=== PATIENT | male | born 1965 | race Caucasian/White ===

== ENCOUNTER 2021-03-10 23:01 | Emergency (ER) | payer MEDICAID ==
[~2021-03-10] VITALS: Ht 177.8 cm; Wt 70.3 kg
[2021-03-10 23:01] VITALS: BP 175/99
--- NOTE | 2021-03-10 23:30 | NUR ---
55 YO/M BIBA FROM HOME S/P PRESCRIPTION MEDICATION OVERDOSE OF LISINOPRIL, METOPROLOL, AND ATENELOL APPROX 15-30PILLS TOTAL. PT REPORTS HE TOOK THOSE MEDICATIONS ATTEMPTED SUICIDE. PT REPORTS HE IS DEPRESSED. PT REPORTS THIS WAS A ONE TIME FEELING, HAS NOT ATTEMPTED SUICIDE IN THE PAST, DOES NOT HAVE SUICIDAL THOUGHTS ANYMORE. PT DENIES VISUAL OR AUDITORY HALLUCINATIONS. PT REPORT FEELING LIGHTHEADED, DENIES BLURRY VISION, N/V/D, HEADACHE, CHEST PAIN, SOB, PAIN OR OTHER SYMPTOMS. PT PRESENTS AOX4, GCS 15, S1 S2 PRESENT, SKIN WARM AND DRY, +2 RADIAL PULSES, CAP REFIL <2SEC, LUNG SOUNDS CLEAR THOUGHOUT W BREATHING EVEN AND UNLABORED, BOWEL SOUNDS PRESENT, ABDOMEN SOFT NON-TENDER. PT HAS 18G TO LAC INSERTED BY [facility] DURING ROUTE. VSS ON MONITOR. PATIENT LAYING SUPINE IN BED, LOCKED IN LOWEST POSITION W X2 SIDERAILS UP. PATIENT PLACED IN GOWN. SUICIDE PRECAUTIONS IN PLACE. PMH:HTN NKA
[2021-03-10 23:53] LABS: BASOPHILS % (AUTO) 0.4 % (0.0-2.0); EOSINOPHILS # (AUTO) 0.1 K/uL (0-0.4); EOSINOPHILS % (AUTO) 0.9 % (0.0-4.0); HEMATOCRIT 40.4 % (36-52); HEMOGLOBIN 13.8 g/dL (12.0-18.0); LYMPHOCYTES # (AUTO) 1.8 K/uL (2.0-11.5); LYMPHOCYTES % (AUTO) 25.1 % (20.5-51.1); MEAN CORPUSCULAR HEMOGLOBIN 30 pg (27-31); MEAN CORPUSCULAR HGB CONC 34 g/dL (33-37); MEAN CORPUSCULAR VOLUME 87.9 fL (80-94); MONOCYTES # (AUTO) 0.6 K/uL (0.8-1.0); MONOCYTES % (AUTO) 9.2 % (1.7-9.3); NEUTROPHILS # (AUTO) 4.5 K/uL (1.8-7.7); NEUTROPHILS % (AUTO) 64.4 % (42.2-75.2); PLATELET COUNT (AUTO) 290 K/uL (140-450); RED BLOOD CELL COUNT(AUTO) 4.59 MIL/uL (4.20-6.10); RED CELL DISTRIBUTION WIDTH 13.2 % (11.6-13.7)
--- NOTE | 2021-03-11 00:18 | NUR ---
SPOKE TO JIGAR FROM POISON CONTROL. PER JIGAR TO DO CARDIAC MONITORING, EKG, MONITOR FOR BRADYCARDIA, AND HYPOTENSION FOR 8-12 HOURS. IF HYPOTENSION OCCURS AND DOES NOT RESPOND TO IV FLUIDS TO GIVE GLUCAGON 5-10MG SLOW IV PUSH WITH AND ANTIEMETIC, THEN START GLUCAGON DRIP AT DOSAGE PT BLOOD PRESSURE RESPONDED TO. IF NON-RESPONSIVE TO TO GLUCAGON DRIP AND PRESSORS ARE REQUIRED TO CALL BACK POISON CONTROL. PER JIGAR DRAW LABS FOR ACETAMINOPHEN AND SALYCILATES. ALSO RECOMMENDING CHARCOAL ADMINISTRATION OF 1GM/KG. ERMD MADE AWARE.
[2021-03-11 00:19] LABS: ANION GAP 15.1 (8-16); CARBON DIOXIDE 23.5 mmol/L (21-32); CHLORIDE 103 mmol/L (98-107); CREATININE 0.9 mg/dL (0.6-1.3); GFR ARICAN-AMERICAN 112 mL/min (>90); GLUCOSE 117 mg/dL (74-106); POTASSIUM 3.6 mmol/L (3.5-5.1); SODIUM SERUM 138 mmol/L (136-145); UREA NITROGEN, BLOOD 7 mg/dL (7-18)
[2021-03-11 00:20] LABS: ACETAMINOPHEN < 0.5 ug/ml (10-30); ALBUMIN 4.1 g/dL (3.4-5.0); ASPARTATE AMINOTRANSFERASE 34 U/L (15-37); SALICYLATE < 2.8 mg/dL (2.8-20.0); TOTAL BILIRUBIN 0.7 mg/dL (0.0-1.0)
--- NOTE | 2021-03-11 00:55 | NUR ---
PT MOVED TO BED 05.
[2021-03-11 00:58] LABS: APPEARANCE,URINE CLEAR (CLEAR); BILIRUBIN,URINE NEGATIVE (NEGATIVE); BLOOD, URINE NEGATIVE (NEGATIVE); COLOR,URINE YELLOW (YELLOW); LEUKOCYTE ESTERASE ,URINE NEGATIVE (NEGATIVE); NITRITE, URINE NEGATIVE (NEGATIVE); UGLUCOSE NEGATIVE (NEGATIVE)
--- NOTE | 2021-03-11 01:05 | NUR ---
PT LAYING IN BED SUPINE W EYES CLOSED. BED LOCKED IN LOWEST POSITION W X2 SIDERAILS UP. BREATHING EVEN AND UNLABORED. VSS ON MONITOR. NAD NOTED, WILL CONTINUE TO MONITOR.
[2021-03-11 01:13] LABS: BARBITURATE, URINE NEGATIVE ng/ml (NEG <=200); BENZODIAZEPINE, URINE NEGATIVE ng/mL (NEG <=200); CANNABINOID, URINE NEGATIVE ng/mL (NEG <=50); COCAINE, URINE NEGATIVE ng/mL (NEG <=300); OPIATE, URINE NEGATIVE ng/mL (NEG <=2000); PHENCYCLIDINE SCREEN,URINE NEGATIVE ng/mL (NEG <=25)
--- NOTE | 2021-03-11 02:40 | NUR ---
PT BP AT 138/71, SALTYD MADE AWARE.
--- NOTE | 2021-03-11 03:07 | NUR ---
PT BP 128/71, ERMD MADE AWARE. PER ERMD START PT ON NS BOLUS.
[2021-03-11] MEDS ORDERED: NACL 0.9% 1,000 ML IV ONE ×2 (03:15)
--- NOTE | 2021-03-11 03:30 | NUR ---
PATIENT LAYING IN BED AWAKE IN L LATERAL POSITION W X2 SIDERAILS UP FOR PATIENT SAFETY. PT REPORTS ONGOING LIGHT HEADEDNESS BUT DENIES ANY OTHER SYMPTOMS. DENIES BLURRY VISION, N/V, OR ANY PAIN. PATIENT VSS ON MONITOR. NAD NOTED, WILL CONTINUE TO MONITOR.
--- NOTE | 2021-03-11 03:55 | NUR ---
PT PROVIDED W URINAL PER PT REQUEST. PT VOIDED 600CC OF CLEAR YELLOW URINE.
--- NOTE | 2021-03-11 04:00 | NUR ---
SPOKE Pierce KIMBALL FROM POISON CONTROL FOR PT STATUS UPDATE. PER POISON CONTROL NO CHANGES IN PREVIOUS INSTRUCTIONS. MONITOR FOR HYPOTENSION OF <90SBP, AND DUE A REPEAT EKG AT THIS TIME.
--- NOTE | 2021-03-11 04:17 | NUR ---
PT AMBULATED TO BATHROOM W STEADY GAIT, ACCOMPANIED BY DAVID CORTEZ.
--- NOTE | 2021-03-11 05:35 | NUR ---
PATIENT LAYING IN BED AWAKE W BLANKET ON, HOB ELEVATED, BED LOCKED IN LOWEST POSITION W X1 SIDERAIL UP. PT DENIES ANY MORE LIGHTHEADEDNESS FEELING. PT REPORTS SOME NAUSEA AND HUNGER. PROVIDED PT W SANDWHICH, JELLO, JUICES, AND WATER. PATIENT VSS ON MONITOR.
--- NOTE | 2021-03-11 05:55 | NUR ---
VON SAMPLE COLLECTED FROM PT NARES AND SENT TO LAB.
--- NOTE | 2021-03-11 05:57 | NUR ---
pt ambulated to rr and back to bed with steady gait. rr door remained slightly open to see pt.
--- NOTE | 2021-03-11 06:00 | NUR ---
PT BP AT 197/92, ERMD AWARE. NO NEW ORDERS AT THIS TIME.
--- NOTE | 2021-03-11 06:15 | NUR ---
pt is dry heaving states he feels like vomiting. ermd made aware.
[2021-03-11] MEDS ORDERED: ATOR10TA51 PO (06:20)
[2021-03-11] MEDS ORDERED: LISI5TAB18 PO (06:20)
[2021-03-11] MEDS ORDERED: MECO10005 PO (06:20)
[2021-03-11] MEDS ORDERED: ATEN25TA7 PO (06:20)
--- NOTE | 2021-03-11 06:20 | NUR ---
PT MED REC COMPLETED. PT ALSO TAKES METOPROLOL UNSURE WHICH KIND OR DOSE, +B21 UNSURE WHICH KIND OR DOSE.
[2021-03-11] MEDS ORDERED: ONDANSETRON 4 MG/2 ML VIAL IVP ONE (06:35)
--- NOTE | 2021-03-11 07:09 | NUR ---
Pt report given to MYCHAL MCFADDEN. Transfer of care at this time.
--- NOTE | 2021-03-11 07:10 | NUR ---
RECEIVED REPORT FROM MYCHAL ISBELL. TRANSFER OF CARE AT THIS TIME.
--- NOTE | 2021-03-11 07:34 | NUR ---
PT AWAKE, ALERT, VERBAL, SI PRECAUTIONS IN PLACE. WILL CONTINUE TO MONITOR.
--- NOTE | 2021-03-11 08:00 | NUR ---
PT SITTING UP HOB ELEVATED, PROVIDED BREAKFAST TRAY, PT CALM AND COOPERATIVE. VSS. WILL CONTINUE TO MONITOR.
--- NOTE | 2021-03-11 08:51 | NUR ---
SPOKE WITH PT DAUGHTER FOR PT UPDATES.
--- NOTE | 2021-03-11 10:00 | NUR ---
PT SITTING UP HOB ELEVATED, PROVIDED BREAKFAST TRAY, PT CALM AND COOPERATIVE. VSS. WILL CONTINUE TO MONITOR.
--- NOTE | 2021-03-11 10:48 | NUR ---
PT BEING TELEPSYCHED AT THIS TIME.
--- NOTE | 2021-03-11 10:50 | NUR ---
PER PSYCHIATRIST PT TO BE KEPT ON 5150 HOLD.
--- NOTE | 2021-03-11 11:45 | NUR ---
SPOKE WITH PT DAUGHTER LUIS ANGEL FOR PT UPDATES.
--- NOTE | 2021-03-11 12:00 | NUR ---
PT SITTING UP HOB ELEVATED, PROVIDED LUNCH TRAY, PT CALM AND COOPERATIVE. VSS. WILL CONTINUE TO MONITOR.
--- NOTE | 2021-03-11 12:50 | NUR ---
PT AMBULATED TO RESTROOM WITH A STEADY GAIT.
--- NOTE | 2021-03-11 12:56 | NUR ---
PT AMBULATED TO ER BED 5. BEDDING SHEETS CHANGED, CLEAN WARM BLANKET PROVIDED.
--- NOTE | 2021-03-11 13:59 | NUR ---
SPOKE WITH PT DAUGHTER, LUIS ANGEL FOR UPDATES.
--- NOTE | 2021-03-11 14:54 | NUR ---
PT RESTING SUPINE, AWAKE, ALERT, VSS, WILL CONTINUE TO MONITOR.
--- NOTE | 2021-03-11 16:00 | NUR ---
PT RESTING SUPINE, AWAKE, ALERT, VSS, WILL CONTINUE TO MONITOR.
--- NOTE | 2021-03-11 17:08 | NUR ---
PT AMBULATED TO RESTROOM WITH A STEADY GAIT.
--- NOTE | 2021-03-11 17:11 | NUR ---
PT AMBULATED TO ER BED 5.
--- NOTE | 2021-03-11 17:32 | NUR ---
SPOKE WITH LUIS ANGEL CAMPBELL DAUGHTER FOR UPDATES.
--- NOTE | 2021-03-11 19:25 | NUR ---
GAVE REPORT TO MYCHAL NEAL. TRANSFER OF CARE AT THIS TIME.
--- NOTE | 2021-03-11 19:27 | NUR ---
RECEIVED REPORT AND TRANSFER OF PT CARE FROM DAY SHIFT RNLESA
--- NOTE | 2021-03-11 21:13 | NUR ---
PT RESTING IN BED, ON THE PHONE SPEAKING TO HIS DAUGHTER, NO SIGNS OF ACUTE DISTRESS
--- NOTE | 2021-03-12 01:53 | NUR ---
PT RESTING IN BED, EYES CLOSED, VSS, R/R EVEN AND UNLABORED, NO SIGNS OF ACUTE DISTRESS
[2021-03-12] MEDS ORDERED: MAGN1.7529 PO (06:24)
--- NOTE | 2021-03-12 07:20 | NUR ---
ENDORSED TO DAY SHIFT RN FOR CONTINUITY OF CARE
--- NOTE | 2021-03-12 07:22 | NUR ---
REPORT RECEIVED FROM MYCHAL NEAL FOR TRANSFER OF CARE
--- NOTE | 2021-03-12 08:52 | NUR ---
pt currently eating breakfast bedside. pt is calm and alert at this time. will continue to monitor
[2021-03-12 10:27] VITALS: BP 187/99
--- NOTE | 2021-03-12 10:46 | NUR ---
VITAL SIGNS STABLE AND CHARTED. SUCIDE SEVERITY SCALE TAKEN AND CHARTED WELL
--- NOTE | 2021-03-12 11:09 | NUR ---
SPOKE WITH DAUGHTER LUIS ANGEL [phone]. PT CURRENTLY SPEAKING WITH DAUGHTER ON MOBILE PHONE
--- NOTE | 2021-03-12 11:51 | NUR ---
PT AMBULATED TO RESTROOM, GAIT STEADY
--- NOTE | 2021-03-12 12:01 | NUR ---
Packet received for placement. Fax to [facility] for review
--- NOTE | 2021-03-12 12:15 | NUR ---
PT GIVEN LUNCH TRAY BEDSIDE
--- NOTE | 2021-03-12 12:47 | NUR ---
Packet fax to the following facilities [facility]/Nelida Gordon
--- NOTE | 2021-03-12 13:01 | NUR ---
SPOKE WITH JAVI FROM [facility] FOR PENDING TRANSFER. PER JAVI A BEDS ASSIGNMENT IS PENDING.
[2021-03-12] MEDS ORDERED: ACETAMINOPHEN 325 MG TAB ONE (15:33)
[2021-03-12] MEDS ORDERED: amLODIPine 5 MG TAB ONE (16:03)
== END 2021-03-12 16:13 ==
LOC: MED 23:01
DX: T44.7X2A Poisoning by beta-adrenoreceptor antagonists, intentional self-harm, initial encounter (principal); Z20.822 Contact with and (suspected) exposure to COVID-19; T46.4X2A Poisoning by angiotensin-converting-enzyme inhibitors, intentional self-harm, initial encounter; I10 Essential (primary) hypertension; F32.9 Major depressive disorder, single episode, unspecified; F41.9 Anxiety disorder, unspecified; F12.90 Cannabis use, unspecified, uncomplicated; Y92.89 Other specified places as the place of occurrence of the external cause
CPT/HCPCS: 36415; 80053; 80305; 81003; 85025; 87426; 93005; 96361; 96374; 99285; G0480; G0482; J2405; J7030; U0003